=== PATIENT | female | born 2000 | race Caucasian/White ===

== ENCOUNTER 2023-07-28 16:16 | Inpatient (IN) ==
[2023-07-28] MEDS ORDERED: OXYTOCIN 30 UNITS/NSS 30 UNITS/500 ML BAG IV PRN ×2 (17:25)
[2023-07-28] MEDS ORDERED: LIDOCAINE 1% LOCAL 20 ML VIAL INFIL PRN (17:25)
--- NOTE | 2023-07-28 17:30 | Obstetrical Progress Note ---
Date of Service July 28, 2023 Assessment & Plan (1) PROM (premature rupture of membranes): Plan: PROM since ?07/25/23 seen in office for PNC today Afebrile, no gross pooling, no ctx FHR; CAT1 Ctx: none VE; FT/thick and posterior. no gross pooling in Vagina even with Valsalva + Nitrazine and AmniSure Plan admit and start Pitocin augmentation Results & Data Vital Signs (Past 12 Hours) Vital Signs Temp Pulse BP 07/28/23 16:45 88 130/72 07/28/23 16:28 36.8 C 07/28/23 16:27 97 H 140/89
[2023-07-28 18:06] LABS: Hematocrit (blood only) 37.4 % (37.0-47.0); Hemoglobin 12.2 g/dl (12.0-16.0); Mean Corpuscular Hemoglobin 28.8 pg (25.0-34.0); Mean Corpuscular Hgb Conc 32.6 g/dL (32.0-36.0); Mean Corpuscular Volume 88.4 fL (80.0-100.0); Mean Platelet Volume 10.3 fL (9.4-12.4); Platelet Count 267 K/uL (130-400); RDW Coefficient of Variation 13.9 % (11.5-14.5); Red Blood Count 4.23 M/uL (4.20-5.40); White Blood Count 12.89 K/ul (4.8-10.8)
[2023-07-28 18:25] LABS: Amphetamines+Metham, Urine Neg (Neg); Barbiturates, Urine Neg (Neg); Benzodiazepine, Urine Neg (Neg); Cocaine, Urine Neg (Neg); MDMA (Ecstacy), Urine Neg (Neg); Marijuana, Urine Pos (Neg); Methadone, Urine Neg (Neg); Opiate, Urine Neg (Neg); Phencyclidine, Urine Neg (Neg)
[2023-07-28] MEDS: LACTATED RINGER'S 1,000 ML IV PRN (19:00)
[2023-07-28] MEDS ORDERED: fentaNYL citrate PF 100 MCG/2 ML VIAL ONE (23:51)
[2023-07-28] MEDS ORDERED: SODIUM CHLORIDE 0.9% PF INJ 10 ML VIAL ONE (23:52)
[2023-07-28] MEDS ORDERED: ePHEDrine sulfate 50 MG/ML AMP ONE (23:52)
[2023-07-28] MEDS ORDERED: LIDOCAINE 2%/EPINEPHRINE 1:200,000 20 ML PF ONE (23:52)
[2023-07-28] MEDS ORDERED: fentANYL 2 MCG/ML BUPIVacaine 0.125%-NSS 100ML BAG ONE (23:52)
[2023-07-28] MEDS ORDERED: BUPIVACAINE 0.25% PF 30 ML VIAL ONE (23:52)
[2023-07-29] MEDS ORDERED: fentANYL 2 MCG/ML BUPIVacaine 0.125%-NSS 100ML BAG EPI PRN (00:11)
[2023-07-29] MEDS ORDERED: LIDOCAINE 2%/EPINEPHRINE 1:200,000 20 ML PF EPI STA (00:11)
[2023-07-29] MEDS ORDERED: LIDOCAINE 2% MPF LOCAL 5 ML VIAL EPI PRN (00:11)
[2023-07-29] MEDS ORDERED: ROPIVACAINE 0.5% PF 5 MG/ML 20 ML VIAL EPI PRN (00:11)
[2023-07-29] MEDS ORDERED: BUPIVACAINE 0.25% PF 30 ML VIAL EPI STA (00:11)
[2023-07-29] MEDS ORDERED: NALOXONE HCL 0.4 MG/1 ML VIAL/CARP IV PRN (00:11)
[2023-07-29] MEDS ORDERED: fentaNYL citrate PF 100 MCG/2 ML VIAL EPI PRN (00:11)
[2023-07-29] MEDS ORDERED: NALOXONE HCL 1 MG in SODIUM CHLORIDE 0.9% 1,000 ML IV PRN (00:11)
[2023-07-29] MEDS ORDERED: ePHEDrine sulfate 50 MG/ML AMP IV PRN (00:11)
[2023-07-29] MEDS ORDERED: diphenhydrAMINE 50 MG/ML VIAL IV PRN (00:11)
[2023-07-29] MEDS ORDERED: fentaNYL citrate PF 100 MCG/2 ML VIAL EPI STA (00:11)
[2023-07-29] MEDS ORDERED: SODIUM CHLORIDE 0.9% PF INJ 10 ML VIAL EPI STA (00:11)
[2023-07-29] MEDS ORDERED: NALBUPHINE HCL 5 MG in SYRINGE 0 ML IV PRN (00:11)
[2023-07-29] MEDS ORDERED: BUPIVACAINE 0.25% PF 30 ML VIAL EPI PRN (00:11)
[2023-07-29] MEDS ORDERED: SODIUM CHLORIDE 0.9% PF INJ 10 ML VIAL EPI PRN (00:11)
--- NOTE | 2023-07-29 00:11 | Anesthesiology Consultation ---
Date of Service July 29, 2023 Assessment & Plan Chart Review Chart Review: Patient NOT seen in Pre Admission Testing and Acceptable Risk for Labor Epidural Consults Requested none ASA ASA2 Proposed Anesthesia Anesthesia Type: Labor Epidural Risk / Benefits Reviewed With: PT / POA / Parent / Guardian, Accepts Plan and Informed Consent Obtained History Height/Weight Height: 5 ft 3 in Weight: 89.811 kg Allergies Allergy/AdvReac Type Severity Reaction Status Date / Time No Known Allergies Allergy Unverified 07/18/23 22:19 Medications Home Medications Medication Instructions Recorded Confirmed Last Taken mecobalamin (vitamin B12) 1,000 1 mcg PO DAILY 07/18/23 07/28/23 1 Week Ago mcg chewable tablet (B12 Active) ~07/21/23 [id number] 1 mg 1 tab PO DAILY 07/18/23 07/28/23 07/25/23 07:00 tablet Active Medications Generic Name Dose Route Start Last Admin Trade Name Freq PRN Reason Stop Dose Admin Lactated Ringer's 1,000 mls @ 125 mls/hr 07/28/23 17:25 07/29/23 00:25 Lr IV 07/30/23 17:24 999 mls/hr .Q8H PRN Titration L&D Protocol Protocol Oxytocin 30 units in 500 mls @ 8 mls/hr 07/28/23 17:25 07/28/23 22:00 Pitocin 30 Units/Nss IV 07/30/23 17:24 0.48 units/hr .Q24H PRN 8 mls/hr Labor Induction/Augmentation Titration Protocol 0.48 UNITS/HR NPO Date Last Intake of Fluids: 07/29/23 Time Last Intake of Fluids: 00:00 Date Last Intake of Solids: 07/28/23 Past Medical History Medical History Depression Anxiety Marijuana smoker Reports medical card Exercise / Class Metabolic Activity II 4-5 Yardwork/Stairs/Walk up hill Past Surgical History Surgical History H/O removal of cyst 5 yr old- in throat Past Anesthesia History No Hx of Anesthesia Complications and No Family Hx of Anesthesia Complications Social History Smoking Status: Never smoker Do You Dip or Chew Tobacco: No Hx Alcohol Use: No Hx Substance Use: Yes substance use type: marijuana Last Used Substance: Days (ago) Last Used Substance Other:: 07/27/23 Review of Systems ROS Unobtainable: All systems reviewed & are unremarkable except as noted in HPI & below Physical Exam Vital Signs Last Vital Signs Temp 37.0 C 07/28/23 23:00 Pulse 67 07/28/23 23:09 Resp 18 07/28/23 23:00 BP 124/82 07/28/23 23:09 ENMT Mouth: no TMJ abnormality Thyromental Distance: > or= 3.5 Finger Breadths Mallampati Class: II Mouth / Teeth: 2 1. broken tooth Neck normal visual inspection and trachea midline; neck extension not limited Respiratory normal respiratory effort Auscultation: lungs clear to auscultation bilaterally Cardiovascular Rate/Rhythm: regular rate and regular rhythm Heart Sounds: no murmur Musculoskeletal Spine: normal cervical ROM Extremities: full ROM of extremities Neurologic moves all extremities Psychiatric Orientation: alert and oriented x 3 Testing Laboratory Results 07/28/23 17:25 Blood Type O Positive 07/28/23 17:24 Antibody Screen NEGATIVE 07/28/23 17:24
[2023-07-29] MEDS: LACTATED RINGER'S 1,000 ML IV PRN ×2 (00:44→05:10)
--- NOTE | 2023-07-29 07:31 | Obstetrical Progress Note ---
Date of Service July 29, 2023 Assessment & Plan (1) PROM (premature rupture of membranes): Plan: Pt doing well SROM on ?07/25/23 Afebrile FHR; CAT1 Ctx 2-4mins VE: 8/80/-1 Pit; 4mu will start on antibx for ? prolonged ROM Admission and Anticipated Discharge Date Admission Date: July 28, 2023 Results & Data Vital Signs (Past 12 Hours) Vital Signs Temp Pulse Resp BP Pulse Ox 07/29/23 07:23 73 98 07/29/23 07:18 64 99 07/29/23 07:14 111 H 132/75 07/29/23 07:13 86 100 07/29/23 07:12 99 H 90 07/29/23 07:08 67 100 07/29/23 07:03 63 95 07/29/23 06:59 63 113/61 07/29/23 06:58 74 97 07/29/23 06:53 65 96 07/29/23 06:48 63 97 07/29/23 06:44 61 116/71 07/29/23 06:43 65 98 07/29/23 06:38 69 100 07/29/23 06:33 70 100 07/29/23 06:30 18 07/29/23 06:30 18 07/29/23 06:29 62 112/74 07/29/23 06:28 55 L 100 07/29/23 06:23 62 100 07/29/23 06:18 94 H 98 07/29/23 06:14 102 H 128/77 07/29/23 06:13 86 100 07/29/23 06:08 66 98 07/29/23 06:03 65 97 07/29/23 06:00 65 100/65 07/29/23 05:58 65 99 07/29/23 05:53 61 98 07/29/23 05:48 69 96 07/29/23 05:44 69 108/62 07/29/23 05:43 65 99 07/29/23 05:38 63 99 07/29/23 05:33 71 100 07/29/23 05:30 20 07/29/23 05:30 20 07/29/23 05:29 67 109/60 07/29/23 05:28 66 100 07/29/23 05:23 67 100 07/29/23 05:18 66 100 07/29/23 05:15 60 108/64 07/29/23 05:13 61 100 07/29/23 05:08 65 100 07/29/23 05:03 61 100 07/29/23 04:59 55 L 119/70 07/29/23 04:58 59 L 100 07/29/23 04:53 72 100 07/29/23 04:48 58 L 97 07/29/23 04:43 60 125/82 100 07/29/23 04:38 62 97 07/29/23 04:33 57 L 98 07/29/23 04:29 55 L 119/78 07/29/23 04:28 61 96 07/29/23 04:23 67 98 07/29/23 04:18 59 L 98 07/29/23 04:14 65 122/79 07/29/23 04:13 61 97 07/29/23 04:08 68 98 07/29/23 04:03 71 100 07/29/23 04:00 18 07/29/23 04:00 36.6 C 18 07/29/23 03:59 72 126/83 07/29/23 03:58 68 100 07/29/23 03:54 78 92 07/29/23 03:53 78 96 07/29/23 03:48 70 100 07/29/23 03:44 88 115/81 07/29/23 03:43 86 100 07/29/23 03:38 71 100 07/29/23 03:33 76 100 07/29/23 03:30 18 07/29/23 03:30 37.0 C 18 07/29/23 03:29 62 119/84 07/29/23 03:28 66 99 07/29/23 03:23 65 99 07/29/23 03:18 70 98 07/29/23 03:14 62 112/71 07/29/23 03:13 65 99 07/29/23 03:08 67 99 07/29/23 03:03 72 99 07/29/23 03:00 67 18 119/77 07/29/23 02:58 73 100 07/29/23 02:53 71 99 07/29/23 02:48 71 100 07/29/23 02:44 61 114/70 07/29/23 02:43 67 99 07/29/23 02:38 63 99 07/29/23 02:33 74 99 07/29/23 02:30 18 07/29/23 02:30 18 07/29/23 02:29 70 125/75 07/29/23 02:28 80 99 07/29/23 02:23 88 100 07/29/23 02:18 74 98 07/29/23 02:13 64 103/58 L 100 07/29/23 02:08 61 100 07/29/23 02:03 59 L 99 07/29/23 01:58 55 L 105/58 L 99 07/29/23 01:53 67 100 07/29/23 01:48 61 100 07/29/23 01:45 60 107/57 L 07/29/23 01:43 61 100 07/29/23 01:38 74 100 07/29/23 01:33 87 100 07/29/23 01:30 18 07/29/23 01:30 18 07/29/23 01:29 66 127/92 07/29/23 01:28 63 100 07/29/23 01:25 71 93 07/29/23 01:23 58 L 100 07/29/23 01:18 68 99 07/29/23 01:13 55 L 125/93 100 07/29/23 01:08 58 L 100 07/29/23 01:03 62 100 07/29/23 01:00 18 07/29/23 01:00 36.5 C 18 07/29/23 01:00 18 07/29/23 01:00 36.5 C 18 07/29/23 00:59 57 L 125/92 07/29/23 00:58 61 100 07/29/23 00:53 66 99 07/29/23 00:48 62 99 07/29/23 00:43 67 127/85 99 07/29/23 00:41 56 L 132/86 07/29/23 00:38 60 161/78 H 97 07/29/23 00:34 57 L 131/95 07/29/23 00:33 56 L 100 07/29/23 00:32 68 152/100 H 07/29/23 00:29 53 L 136/81 07/29/23 00:28 63 129/75 98 07/29/23 00:25 89 94 07/29/23 00:23 85 100 07/29/23 00:18 73 100 07/28/23 23:09 67 124/82 07/28/23 23:00 18 07/28/23 23:00 37.0 C 18 07/28/23 21:26 62 132/81 07/28/23 21:00 18 07/28/23 21:00 36.7 C 18 (1) PROM (premature rupture of membranes) PROM gestational age: full term
[2023-07-29] MEDS ORDERED: AMPICILLIN 2,000 MG in SODIUM CHLORIDE 0.9% 50 ML IV SCH (08:00)
[2023-07-29] MEDS ORDERED: AMPICILLIN 2,000 MG in SODIUM CHLOR 0.9% MINI-B 100 ML IV SCH (08:30)
--- OUTSIDE RECORDS SUMMARY | 2023-07-29 10:49 | External Medical Summary ---
Author Name Unknown Address Unknown Organization K01[place] [facility] [place] [address] [place] [address] Laboratory Report Ordering Provider Test Date Status NOLBERTO SAHU 07/20/2023 11:26:53 Final Observation Date Value Abnormality Reference (Units ) Status Retic, % (auto) 07/20/2023 11:26:53 1.87 0.80-1.90 (%) Final Reticulocytes, Absolute 07/20/2023 11:26:53 77.2 31.3-100.1 (K/uL) Final Reticulocyte fraction, immature 07/20/2023 11:26:53 12.6 2.5-20.6 (%) Final Reticulocyte HGB 07/20/2023 11:26:53 32.9 29.7-37.4 (pg) Final Performing Location [place] [facility] [place] [address] [place] [address]
--- OUTSIDE RECORDS SUMMARY | 2023-07-29 10:49 | External Medical Summary ---
Author Name Unknown Address Unknown Organization K01:[facility]ATORY [facility] - [address] [place] [address] Laboratory Report Ordering Provider Test Date Status NOLBERTO SAHU 07/20/2023 11:26:53 Final Observation Date Value Abnormality Reference (Units ) Status Folic Acid 07/20/2023 11:26:53 6.5 >4.5 (ng/ mL) Final Performing Location [facility] - [address] [place] [address]
--- OUTSIDE RECORDS SUMMARY | 2023-07-29 10:49 | External Medical Summary ---
Author Name Unknown Address Unknown Organization K01:[facility]ATORY [facility] - [address] [place] [address] Laboratory Report Ordering Provider Test Date Status NOLBERTO SAHU 07/20/2023 11:26:53 Final Observation Date Value Abnormality Reference (Units ) Status Ferritin 07/20/2023 11:26:53 138 13-150 (ng /mL) Final Performing Location [facility] - [address] [place] [address]
--- OUTSIDE RECORDS SUMMARY | 2023-07-29 10:49 | External Medical Summary | Summary of Care ---
Author Name Unknown Organization [facility] Address [address] [facility] [place] [address] Phone [phone] Care Team Providers Care Oncology Specialist Name Role Phone Unavailable Primary Care Provider Unavailabl e Encounter Details Date Type Department Care Team (Late st Contact Info) Description 07/26/2023 Telephone Gynecology/Obstetrics [facility] [address] [place] [address] Jj Dave MD [address] [place] [id number] Allergies No known active allergiesdocumented as of this encounter (statuses as of 07/26/2023) Medications Medication Sig Dispensed Refills Start Date End Date Status 28-0.8 MG Oral Tablet Take by mouth. 0 Active Vitamin B-12 1000 MCG Oral Tablet (Cyanocobalamin)Indica tions:Anemia due to vitamin B12 deficiency, unspecified B12 deficiency type Take 1 Tablet by mouth in the morning. 30 Tablet 3 05/18/2023 Active documented as of this encounter (statuses as of 07/26/2023) Active Problems Problem Noted Date Diagnosed Date Upper respiratory tract infection 06/09/2023 Nausea and vomiting 06/09/2023 32 weeks gestation of 06/09/2023 Vitamin B 12 deficiency 06/02/2023 Iron deficiency anemia 06/01/2023 Normal 05/17/2023 Screening for genetic disease carrier status Overview: Expanded carrier screening for 556 genes completed. 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 See scanned in report on 01/24/2023. At risk for complication of 01/13/2023 Overview: Moderate risk factors for preeclampsia: nulliparity and sister with history of preeclampsia BP Readings from Last 6 Encounters: 12/27/22 120/70 Recommend starting bASA therapy (aspirin 81mg daily) at 13w gestation. Last Assessment & Plan: 1. For patients with more than one moderate risk factor for developing preeclampsia, we recommend aspirin (dose less than 81 mg), starting at 12-28 weeks' gestation (optimally before 16 weeks) continued until delivery. These moderate risk factors include: nulliparity, obesity (BMI greater than 30), race, use of assisted reproductive techniques, family history of preeclampsia (ie mother or sister), age greater than or equal to 35, personal history factors (eg low weight, SGA, or previous adverse outcome, greater than 10-year interval). 2. Contraindications to aspirin use during include: Women with a history of aspirin allergy or hypersensitivity to other salicylates Women with a history of a hypersensitivity to NSAIDs Women with nasal polyps as it can result in life-threatening bronchoconstriction Women with a history of aspirin-induced bronchospasm History of gastrointestinal bleeding, active peptic ulcer disease, and severe hepatic dysfunction Thrombocytopenia (platelets less than 150,000) 3. There is no evidence of increased risk of bleeding complications, abruption, early closure of the ductus arteriosus or intraventricular hemorrhage in women exposed to low-dose aspirin. Family history of muscular dystrophy 01/12/2023 Overview: FOB with history of "mild" muscular dystrophy - diagnosed as child FOB states strong family history of muscular dystrophy on maternal side. His mother does not have it but several relatives on FOB's mother side of family do have disorder as well Appointment with genetic counselor on 01/17/2023. Last Assessment & Plan: FOB with Charcot Joslyn Tooth CMTX1 (X-linked dominant); female fetus will inherit. Couple has met with genetic counseling. Low risk NIPT and msAFP appreciated. Marijuana use during 01/12/2023 Overview: Medical marijuana use - was using for history of depression D/C with knowledge of the Last Assessment & Plan: CONSIDERATIONS: Chemicals found in marijuana, such as tetrahydrocannabinol (THC), are distributed to the brain and fat and cross the placenta. THC also appears in breast milk. In utero exposure is associated with short and long-term morbidity. A positive screen result is reported to [facility]. RECOMMENDATIONS: Abstain from marijuana use in and while ; avoid secondhand exposure. Discontinue use of marijuana for medicinal purposes in favor of an alternative therapy for which there are better -specific safety data. Current every day vaping 01/12/2023 Overview: Vaping daily - flavoring only. Stopped using nicotine with knowledge of the . Last Assessment & Plan: Data is limited with regards to adverse outcomes associated with use of electronic cigarettes, however it exposes the woman and fetus to nicotine and other harmful or potentially harmful substances, are not associated with any health benefits, and should be avoided in . Depression complicating , antepartum Overview: History of major depressive disorder and PTSD. No medication use for years. Previously on Lamictal. History of suicide thoughts several years ago went to inpatient facility. Denies history of suicide attempts. Not currently in therapy. Previously used marijuana for relief. Reports an overall stable mood in . Denies any suicidal or homicidal ideation. Reports she has a good support system at home. Last Assessment & Plan: CONSIDERATIONS: Untreated maternal anxiety and depression may be associated with an increased risk of multiple poor obstetrical outcomes including miscarriages, low weight, and delivery. Women with a history of anxiety or depression are at risk for recurrence both during and/or the period. Studies of first-trimester SSRI exposure do not demonstrate consistent data to support an increased risk for structural malformations. Anti-anxiety or depression medications have been associated with transient effects (withdrawal syndrome). RECOMMENDATIONS: Mental illness can and should be treated during when the benefits of treatment outweigh potential risks. Referral to behavioral health services as clinically indicated. Chlamydia infection affecting , antepar yanna 12/28/2022 Overview: + NOB. Recheck 36 wks - negative Estimated Date of Delivery Comme nts Yes 08/04/2023 Based on Ultraso [facility], resource center documented as of this encounter (statuses as of 07/26/2023) Resolved Problems Problem Noted Date Diagnosed Date Resolved Date Food insecurity 01/03/2023 04/07/2023 Overview: Per [facility] Protocol documented as of this encounter (statuses as of 07/26/2023) Immunizations Name Administration Dates Next Due Seasonal Influenza, PF, 6 M & above, IM , (FluLaval or Fluzone) 05/17/2023 TDAP (age 10 and older)(Boostrix) 05/17/2023 documented as of this encounter Social History Tobacco Use Types Packs/Day Years Used Date Smoking Tobacco: Former Vaporizer Comments:Social cig use in d istant past Alcohol Use Standard Drinks/Week Comments Not Currently 0 (1 standard drink = 0.6 oz pur e alcohol) denies during 2022 Hunger Vital Sign Answer Date Recorded Within the past 12 months, y ou worried that your food would run out before you got the money to buy more. Patient refused Within the past 12 months, t he food you bought just didn't last and you didn't have money to get more. Patient refused [place] Depression Scale Answer Date Recorded [place] Depression Scale Total 4 06/28/2023 The thought of harming myself has occurred to me . Never 06/28/2023 Estimated Date of Delivery Comme nts Yes 08/04/2023 Based on Ultraso [facility], resource center Sex and Gender Information Value Date Recorded Sex Assigned at Female 12/21/2022 2:30 PM EDT Gender Identity Female 12/21/2022 2:30 PM EDT Sexual Orientation Straight 12/21/2022 2: 30 PM EDT Job Start Date Occupation Industry Not on file Not on file Not on file documented as of this encounter Miscellaneous Notes * Telephone Encounter - Rosmery Coronel LPN - 07/26/2023 11:18 AM EST Pt is currently 38w5d with an Estimated Date of Delivery: 08/04/23 - States the past few days has had increase in discharge. Unsure if it is leaking amniotic fluid. Denies bleeding. +FM. States she has had several episodes where underwear needed changed but not all atonce, is not gushing. Reviewed with Dr. Dave. He does not think this sounds like amniotic fluid and rather just increasein discharge in late term . Monitor and if things change, gushing fluid or contractions begin or bleeding let us know. Patient notified and agreeable with plan of care. documented in this encounter Plan of Treatment Upcoming Encounters Date Type Department Care Team (Late st Contact Info) Description 07/28/2023 3:00 PM EST [facility] [address] [place] [address] Brandi Hall CRNP [address] [place] [address] Health Maintenance Due Date Last Done Comments Hepatitis B (1 of 3 - 3-dose series) 2002 COVID-19 Vaccine (#1) 06/13/2003 Yearly Wellness Visit 2006 GARDASIL-HPV IMMUNIZATION SERIES (1 - 2-dose series) 2013 Depression Screening 2014 Gonorrhea / Chlamydia Screen 07/12/2024, 03/21/2023, 12/27/2022 DTaP,Tdap,and Td Vaccines (2 - Td or Tdap) 05/17/2033 05/17/2023 Influenza Vaccine (FLU shot) Completed , 05/17/2023 MENINGOCOCCAL (MENACTRA/MENVEO) Aged Out No longer eligible b ased on patient's age to complete this topic Pneumococcal Vaccine: Pediatrics (0 to 5 Years) and At-Risk Patients (6 to 64 Years) Aged Out No longer eligible b ased on patient's age to complete this topic documented as of this encounter Medical Devices Not on filedocumented as of this encounter
--- OUTSIDE RECORDS SUMMARY | 2023-07-29 10:49 | External Medical Summary | Summary of Care ---
Author Name Unknown Organization [facility] Address [address] [facility] [place] [address] Phone [phone] Care Team Providers Care Nursing Program Chair Name Role Phone Unavailable Primary Care Provider Unavailabl e Reason for Visit * Reason Comments Return Visit Encounter Details Date Type Department Care Team (Late st Contact Info) Description 07/19/2023 8:30 AM EST Office Visit Gynecology/Obstetric s [facility] [address] [place] [address] Brandi Hall CRNP [address] [place] [phone] Normal in third trimester*; Chlamydia infection affecting , antepartum; Family history of muscular dystrophy; Marijuana use during ; Current every day vaping; Depression complicating , antepartum; At risk for complication of Allergies No known active allergiesdocumented as of this encounter (statuses as of 07/19/2023) Medications Medication Sig Dispensed Refills Start Date End Date Status 28-0.8 MG Oral Tablet Take by mouth. 0 Active Vitamin B-12 1000 MCG Oral Tablet (Cyanocobalamin)Indica tions:Anemia due to vitamin B12 deficiency, unspecified B12 deficiency type Take 1 Tablet by mouth in the morning. 30 Tablet 3 05/18/2023 Active documented as of this encounter (statuses as of 07/19/2023) Active Problems Problem Noted Date Diagnosed Date [...] as of this encounter (statuses as of 07/19/2023) Resolved Problems Problem Noted Date Diagnosed Date Resolved Date Food insecurity 01/03/2023 04/07/2023 Overview: Per [facility] Protocol documented as of this encounter (statuses as of 07/19/2023) Immunizations Name Administration Dates Next Due Seasonal [...] have money to get more. Patient refused [place] Depression Scale Answer Date Recorded [place] Depression Scale Total 4 06/28/2023 The thought [...] on file documented as of this encounter Last Filed Vital Signs Vital Sign Reading Time Taken Comments Blood Pressure 122/70 07/19/2023 8:25 AM EST Pulse - - Temperature - - Respiratory Rate - - Oxygen Saturation - - Inhaled Oxygen Concentration - - Weight 87.5 kg (193 lb) 07/19/2023 8:25 AM EST Height - - Body Mass Index 34.19 07/12/2023 8:40 AM EST documented in this encounter Progress Notes * Brandi Hall CRNP - 07/19/2023 8:29 AM EST 37w5d Went to L&D yesterday with decreased FM, reports normal NST. Good movement now. No regular ctx, leaking/bleeding. Repeat labs for anemia tomorrow. 1 week return CLINTON Christie * Radha Dominique LPN - 07/19/2023 8:25 AM EST 37W5D Went to L&D yesterday for decreased FM was put on nst and everything was good documented in this encounter Plan of Treatment Upcoming Encounters Date Type Department Care Team (Late st Contact Info) Description 07/20/2023 11:30 AM EST [facility] [address] [place] [phone] Felisa Flores [address] [facility] [place] [address] 07/21/2023 9:30 AM EST Pharmacy Pharmacy, [place] [address] [place] [address] Clinic, [facility] [address] [place] [address] 07/28/2023 3:00 PM EST Office Visit Gynecology/Obstetrics [facility] [address] [place] [address] BackerBrandi CRNP [address] [place] [address] Health Maintenance Due Date Last Done Comments [...] Not on filedocumented as of this encounter Visit Diagnoses Diagnosis Normal in third trimester- Primary Chlamydia infection affecting , antepartum Family history of muscular dystrophy Family history of other neurological diseases Marijuana use during Current every day vaping Depression complicating , antepartum Mental disorders of mother, antepartum At risk for complication of documented in this encounter
--- OUTSIDE RECORDS SUMMARY | 2023-07-29 10:49 | External Medical Summary ---
Author Name Unknown Address Unknown Organization K01:[place] [facility] [place] [address] [place] [address] Laboratory Report Ordering Provider Test Date Status NOLBERTO SAHU 07/20/2023 11:26:53 Final Observation Date Value Abnormality Reference (Units ) Status Vitamin B12 07/20/2023 11:26:53 196 Below low normal 2 32-1245 (pg/mL) Final Performing Location [facility]ATORY [facility] - [address] [place] [address]
--- OUTSIDE RECORDS SUMMARY | 2023-07-29 10:49 | External Medical Summary ---
Author Name Unknown Address Unknown Organization K01[place] [facility] [place] [address] [facility] [address] Laboratory Report Ordering Provider Test Date Status NOLBERTO SAHU 07/20/2023 11:26:53 Final Observation Date Value Abnormality Reference (Units ) Status WBC, Total 07/20/2023 11:26:53 10.96 Above high normal 4.00-10.80 (K/uL) Final RBC 07/20/2023 11:26:53 4.13 3.85-5.15 (M/uL) Final Hemoglobin 07/20/2023 11:26:53 11.9 Below low normal 12.0-15.3 (g/dL) Final HCT 07/20/2023 11:26:53 38.0 36.0-45.2 (%) Final MCV 07/20/2023 11:26:53 92.0 81.5-97.5 (fL) Final MCH 07/20/2023 11:26:53 28.8 27.0-34.0 (pg) Final MCHC 07/20/2023 11:26:53 31.3 32.0-36.0 (g/dL) Final RDW 07/20/2023 11:26:53 14.1 11.5-15.5 (%) Final Platelets 07/20/2023 11:26:53 237 140-400 (K/uL) Final MPV 07/20/2023 11:26:53 12.4 6.6-11.1 (fL) Final Nucleated erythrocytes/100 leukocytes [Ratio] in Blood by Automated count 07/20/2023 11:26:53 0 <=0 (/100 WBCs) Final Performing Location [facility] [place] [address] [place] [address]
--- OUTSIDE RECORDS SUMMARY | 2023-07-29 10:49 | External Medical Summary | Summary of Care ---
Author Name Unknown Organization [facility] Address [address] [place] [address] Phone [phone] Care Team Providers Care [employer] Diagnostic Technician Name Role Phone Unavailable Primary Care Provider Unavailabl e Reason for Visit * Reason Comments Outpatient Testing Encounter Details Date Type Department Care Team (Late st Contact Info) Description 07/20/2023 11:30 AM EST Laboratory Laboratory, [facility] [address] [facility] [place] [id number] [facility] [address] [facility] [place] [id number] Iron deficiency anemia, unspecified iron deficiency anemia type Allergies No known active allergiesdocumented as of this encounter (statuses as of 07/20/2023) Medications Medication Sig Dispensed Refills Start Date End Date Status 28-0.8 MG Oral Tablet Take by mouth. 0 Active Vitamin B-12 1000 MCG Oral Tablet (Cyanocobalamin)Indica tions:Anemia due to vitamin B12 deficiency, unspecified B12 deficiency type Take 1 Tablet by mouth in the morning. 30 Tablet 3 05/18/2023 Active documented as of this encounter (statuses as of 07/20/2023) Active Problems Problem Noted Date Diagnosed Date [...] as of this encounter (statuses as of 07/20/2023) Resolved Problems Problem Noted Date Diagnosed Date Resolved Date Food insecurity 01/03/2023 04/07/2023 Overview: Per [facility] Protocol documented as of this encounter (statuses as of 07/20/2023) Immunizations Name Administration Dates Next Due Seasonal [...] have money to get more. Patient refused Kelley Depression Scale Answer Date Recorded Kelley Depression Scale Total 4 06/28/2023 The thought [...] on file documented as of this encounter Plan of Treatment Upcoming Encounters Date Type Department Care Team (Late st Contact Info) Description 07/21/2023 9:30 AM EST Pharmacy Pharmacy, [place] [address] [place] [address] Clinic, Anemia [address] [place] [address] 07/28/2023 3:00 PM EST Office Visit Gynecology/Obst[facility] [address] [place] [id number] BackerBrandi CRNP [address] [place] [address] Pending Results Name Type Priority Associated Diagnoses Date /Time CBC WITH WBC DIFFERENTIAL Lab Routine Iron deficiency anemia, unspecified iron deficiency anemia type 07/20/2023 11:26 AM EST IRON SCREEN, INCLUDING TIBC Lab Routine Iron deficiency anemia, unspecified iron deficiency anemia type 07/20/2023 11:26 AM EST FERRITIN Lab Routine Iron deficiency anemia, unspecified iron deficiency anemia type 07/20/2023 11:26 AM EST RETICULOCYTE PANEL Lab Routine Iron deficiency anemia, unspecified iron deficiency anemia type 07/20/2023 11:26 AM EST FOLIC ACID Lab Routine Iron deficiency anemia, unspecified iron deficiency anemia type 07/20/2023 11:26 AM EST VITAMIN B12 Lab Routine Iron deficiency anemia, unspecified iron deficiency anemia type 07/20/2023 11:26 AM EST CBC Lab Routine Iron deficiency anemia, unspecified iron deficiency anemia type 07/20/2023 11:26 AM EST DIFFERENTIAL, AUTOMATED Lab Routine Iron deficiency anemia, unspecified iron deficiency anemia type 07/20/2023 11:26 AM EST Health Maintenance Due Date Last Done Comments [...] as of this encounter Visit Diagnoses Diagnosis Iron deficiency anemia, unspecified iron deficiency anemia type documented in this encounter
--- OUTSIDE RECORDS SUMMARY | 2023-07-29 10:49 | External Medical Summary ---
Author Name Unknown Address Unknown Organization [id number]:LABORATORY [facility] [place] - [address] [facility] [place] [address] Laboratory Report Ordering Provider Test Date Status NOLBERTO SAHU 07/20/2023 11:26:53 Final Observation Date Value Abnormality Reference (Units ) Status SYNC LEUKOCYTES IN BLOOD BY AUTOMATED COUNT 07/20/2023 11:26:53 10.96 Above high normal 4.00-10.80 (K/uL) Final Segs 07/20/2023 11:26:53 72.4 40.0-75.0 (%) Final Lymphs % 07/20/2023 11:26:53 19.5 18.0-42.0 (%) Final Monos 07/20/2023 11:26:53 6.2 1.0-11.0 (%) Final Eosinophils 07/20/2023 11:26:53 0.6 0.0-6.0 (%) Final Basos 07/20/2023 11:26:53 0.3 0.0-2.0 (%) Final Immature Granulocyte, Percent 07/20/2023 11:26:53 1.0 0.0-2.0 (%) Final Absolute Segs 07/20/2023 11:26:53 7.93 1.80-8.00 (K/uL) Final Lymphs, absolute 07/20/2023 11:26:53 2.14 1.20-5.40 (K/ul) Final Monos, Abs 07/20/2023 11:26:53 0.68 0.00-1.10 (K/uL) Final Eos, Abs 07/20/2023 11:26:53 0.07 0.00-0.70 (K/uL) Final Basos, Abs 07/20/2023 11:26:53 0.03 0.00-0.20 (K/uL) Final Immature Granulocytes, Number 07/20/2023 11:26:53 0.11 0.00-0.20 (K/uL) Final Performing Location LABORATORY [facility] - [address] [facility] [address]
--- OUTSIDE RECORDS SUMMARY | 2023-07-29 10:49 | External Medical Summary ---
Author Name Unknown Address Unknown Organization [id number]:LABORATORY [facility] [place] - [address] [place] [address] Laboratory Report Ordering Provider Test Date Status NOLBERTO SAHU 07/20/2023 11:26:53 Final Observation Date Value Abnormality Reference (Units ) Status Iron 07/20/2023 11:26:53 62 33-151 (ug/dL) Final Iron-binding capacity 07/20/2023 11:26:53 445 Above high normal 250-425 (ug/dL) Final Transferrin Sat % 07/20/2023 11:26:53 14 Below low normal 15-55 (%) Final Performing Location LAB[facility]ATORY [facility] [place] - [address] [place] [address]
--- OUTSIDE RECORDS SUMMARY | 2023-07-29 10:49 | External Medical Summary ---
Author Name Unknown Address Unknown Organization [id number]:[facility] - [address] [place] [address] Laboratory Report Ordering Provider Test Date Status NILAY LANGFORD 07/28/2023 14:58:15 Final Observation Date Value Abnormality Reference (Units ) Status Premature Rupture Membrane risk 07/28/2023 14:58:15 Positive Abnormal Negative Final Performing Location [facility]ATORY [facility] - [address] [place] [address]
--- NOTE | 2023-07-29 12:30 | Delivery Summary ---
Vaginal Delivery Summary Date of Service July 29, 2023 Vaginal Delivery Summary live female over intact perineum with nuchal cord x1 reduced at delivery of head with Apgars 8/9. Cord blood obtained followed by spontaneous delivery of intact placenta. No tears. EBL 100 ml. Final sponge and instrument count are correct. Mom and baby stable.
[2023-07-29] MEDS ORDERED: HYDROCORTISONE ACETATE 25 MG SUPP PR PRN (12:46)
[2023-07-29] MEDS ORDERED: BENZOCAINE 20% SPRY 85 APPLN/85 GM CAN EXT PRN (12:46)
[2023-07-29] MEDS ORDERED: OXYTOCIN 30 UNITS/NSS 30 UNITS/500 ML BAG IV PRN (12:46)
[2023-07-29] MEDS ORDERED: DIPHTHERIA/TETANUS/PERTUSSIS Vaccine (Tdap, Age 7+yrs) 0.5mL SYR/VL IM ONE (12:46)
[2023-07-29] MEDS ORDERED: IBUPROFEN 600 MG TAB PO PRN (12:46)
[2023-07-29] MEDS ORDERED: bisacodyL 10 MG SUPP PR PRN (12:46)
[2023-07-29] MEDS ORDERED: ACETAMINOPHEN 325 MG TAB PO PRN (12:46)
--- NOTE | 2023-07-29 14:31 | Anesthesia Procedure Note ---
Date of Service July 29, 2023 Anesthesia Post Epidural Note Vital Signs Vital Signs: Temp Pulse Resp BP Pulse Ox O2 Del Method 36.4 C L 68 16 115/77 98 Room Air 07/29/23 13:45 07/29/23 13:45 07/29/23 13:45 07/29/23 13:45 07/29/23 13:45 07/29/23 13:45 Notes Mental Status: alert / awake / arousable and participated in evaluation Patient Amnestic to Procedure: No Nausea / Vomiting: adequately controlled Pain: adequately controlled Airway Patency, RR, SpO2: stable & adequate BP & HR: stable & adequate Hydration State: stable & adequate Neuraxial Anesthesia: was administered and sensory block resolved Anesthetic Complications: no major complications apparent and Pt Satisfied with anesthetic care Epidural: Removed without complications and With tip intact
[2023-07-29] MEDS: DOCUSATE SODIUM 100 MG CAP PO SCH (20:23)
[2023-07-30] MEDS: DOCUSATE SODIUM 100 MG CAP PO SCH (07:57)
[2023-07-30] MEDS ORDERED: FERROUS SULFATE 325 MG TAB PO SCH (08:00)
[2023-07-30] MEDS ORDERED: PRENATAL VITAMIN 1 TAB PO SCH (08:00)
[2023-07-30 08:52] LABS: Hematocrit (blood only) 33.4 % (37.0-47.0); Hemoglobin 10.8 g/dl (12.0-16.0); Mean Corpuscular Hemoglobin 28.6 pg (25.0-34.0); Mean Corpuscular Hgb Conc 32.3 g/dL (32.0-36.0); Mean Corpuscular Volume 88.4 fL (80.0-100.0); Mean Platelet Volume 10.3 fL (9.4-12.4); Platelet Count 192 K/uL (130-400); RDW Coefficient of Variation 14.1 % (11.5-14.5); RDW Standard Deviation 45.7 fL (36.4-46.3); Red Blood Count 3.78 M/uL (4.20-5.40); White Blood Count 12.59 K/ul (4.8-10.8)
[2023-07-30] MEDS ORDERED: NON-FORMULARY MEDICATION (Prenatal Multivit-Min-Fe-Fa 1 mg Tablet) PO SCH (09:00)
[2023-07-30] MEDS ORDERED: CYANOCOBALAMIN (B-12) 500 MCG TABLET PO SCH (09:00)
--- NOTE | 2023-07-30 09:15 | Obstetrical Progress Note ---
Date of Service July 30, 2023 Assessment & Plan Admission and Anticipated Discharge Date Admission Date: July 28, 2023 Subjective Patient is seen and examined. She feels well, no complaints. Ambulating without dizziness Voiding without difficulty Tolerating regular diet with out N&V Bleeding is minimal No fever/ chills/ CP/ SOB/ N&V/ Leg pain Bottle feeding without problems Vital Signs Temp Pulse Resp BP Pulse Ox O2 Del Method 07/30/23 08:00 Room Air 07/30/23 08:00 36.3 C L 65 16 108/83 100 Room Air 07/30/23 04:00 36.8 C 61 18 120/81 99 Room Air 07/29/23 23:00 36.8 C 70 18 122/80 100 Room Air Lab Results 07/28/23 07/28/23 07/30/23 Range/Units 17:24 17:25 08:35 WBC 12.89 H 12.59 H (4.8-10.8) K/ul RBC 4.23 3.78 L (4.20-5.40) M/uL Hgb 12.2 10.8 L (12.0-16.0) g/dl Hct 37.4 33.4 L (37.0-47.0) % MCV 88.4 88.4 (80.0-100.0) fL MCH 28.8 28.6 (25.0-34.0) pg MCHC 32.6 32.3 (32.0-36.0) g/dL RDW Std Deviation 45.0 45.7 (36.4-46.3) fL RDW Coeff of Aidee 13.9 14.1 (11.5-14.5) % Plt Count 267 192 (130-400) K/uL MPV 10.3 10.3 (9.4-12.4) fL Urine Opiates Screen Neg (Neg) Ur Methadone, Qual Neg (Neg) Urine Barbiturates Neg (Neg) Ur Phencyclidine (PCP) Neg (Neg) U Amphetamin/Meth Scrn Neg (Neg) MDMA (Ecstasy) Screen Neg (Neg) U Benzodiazepines Scrn Neg (Neg) Ur Cocaine Metabolite Neg (Neg) U Marijuana (THC) Screen Pos H (Neg) Blood Type O Positive Antibody Screen NEGATIVE PE: General: Alert, orientedx3, NAD Abd: soft, NT, fundus firm, below Umbilicus Perineum intact, Lochia rubra minimal Ext; NT, no edema AP: 22 yo s/p , ppd# 1 VSS Afebrile doing well Continue routine care All questions were answered Desires d/c this afternoon D/C home if baby will be cleared by peds Results & Data Vital Signs (Past 12 Hours) Vital Signs Temp Pulse Resp BP Pulse Ox O2 Del Method 07/30/23 08:00 Room Air 07/30/23 08:00 36.3 C L 65 16 108/83 100 Room Air 07/30/23 04:00 36.8 C 61 18 120/81 99 Room Air 07/29/23 23:00 36.8 C 70 18 122/80 100 Room Air
[2023-07-30] MEDS ORDERED: bisacodyL 5 MG TABEC PO SCH (20:00)
--- NOTE | 2023-07-31 05:37 | Coding Query ---
CODING QUERY To promote full compliance with coding requirements relating to patient care, provider participation is requested in all cases of [employer] systems administrator uncertainty. Please assist us with the question(s) below: Coding Question(s): Please specify below, regarding the number of weeks of gestation of the on admission: ( X ) Specified number of weeks of gestation of on admission. Please Specify 39.1 weeks ( ) Unknown number of weeks of gestation of on admission Physician's Response(s): Thank you Sharita Jaeger Principal Diagnosis: "that condition established after study, to be chiefly responsible for occasioning the admission of the patient to the hospital for care." Co-Existing Principal Diagnosis: "when two or more diagnoses equally meet the criteria for principal diagnosis as determined by the circumstances of admission, diagnostic work up, and/or therapy provided, and the Alphabetic Index, Tabular List, or another coding guideline does not provide sequencing direction, any one of the diagnoses may be sequenced first." "When the physician has documented what appears to be a current diagnosis in the body of the record, but has not included the diagnosis in the final diagnostic statement, the physician should be asked whether the diagnosis should be added." (Source Coding Clinic 2 QTR90. p3-4) [place]
[2023-07-31 13:18] LABS: Marijuana Quant, GCMS Urine 177 ng/mL (<5)
== END 2023-07-30 13:45 | disposition home or self-care (01) | DRG 807 ==
LOC: OPB 16:16 → 4S1 16:17 → 4E2 07-29 13:26